=== PATIENT | female | born 1980 | race African-American/Black ===

== ENCOUNTER 2018-09-13 21:51 | Emergency (ER) | payer OTHER ==
[~2018-09-13] VITALS: Ht 167.6 cm; Wt 62.1 kg
[~2018-09-13 21:51] MED LIST: NORE-88
[2018-09-13 21:54] VITALS: BP 114/79
[2018-09-13] MEDS ORDERED: SODIUM CHLORIDE FLUSH 10ML SYR IVF ONE (22:30)
[2018-09-13 22:59] LABS: CULTURE INDICATED? YES; MICROSCOPIC AUTO
[2018-09-13 23:02] LABS: BASOPHILS # (AUTO) 0.09 x10^3/uL (0-0.1); BASOPHILS % (AUTO) 1 % (0-1); EOSINOPHILS # (AUTO) 0.34 x10^3/uL (0-0.4); EOSINOPHILS % (AUTO) 3 % (1-7); LYMPHOCYTES # (AUTO) 2.31 x10^3/uL (1-3.4); LYMPHOCYTES % (AUTO) 21 % (22-44); MD NO; MEAN CORPUSCULAR HEMOGLOBIN 30.6 pg (27.0-34.8); MEAN CORPUSCULAR HGB CONC 33.3 g/dL (32.4-35.8); MEAN CORPUSCULAR VOLUME 91.8 fL (80-100); MEAN PLATELET VOLUME 8.5 fL (7.4-10.4); MONOCYTES # (AUTO) 0.83 x10^3/uL (0.2-0.8); MONOCYTES % (AUTO) 8 % (2-9); NEUTROPHILS % (AUTO) 67 % (42-75); PLATELET COUNT 328 x10^3/uL (130-400); RED BLOOD COUNT 4.23 x10^6/uL (3.82-5.3); RED CELL DISTRIBUTION WIDTH 12.4 % (9.6-15.2)
[2018-09-13 23:10] LABS: ALBUMIN 3.7 g/dL (3.4-5.0); ANION GAP 6 mmol/L (5-15); CALCIUM 8.3 mg/dL (8.5-10.1); CHLORIDE 109 mmol/L (98-107)
[2018-09-13 23:15] LABS: ALANINE AMINOTRANSFERASE 29 U/L (12-78); ALKALINE PHOSPHATASE 59 U/L (45-117); BILIRUBIN,TOTAL 0.7 mg/dL (0.2-1.0); CREATININE 0.98 mg/dL (0.55-1.02); TOTAL PROTEIN 7.1 g/dL (6.4-8.2)
[2018-09-13] MEDS ORDERED: OMNIPAQUE 350 MG/ML, 100ML BOTTLE ONE (23:20)
== END 2018-09-14 00:54 | disposition home or self-care (01) ==
LOC: ED 23:06
DX: R10.31 Right lower quadrant pain (principal); D25.2 Subserosal leiomyoma of uterus
CPT/HCPCS: 36415; 74177; 80053; 81001; 84703; 85025; 87086; 99284; Q9967

== ENCOUNTER 2019-04-28 06:10 | Emergency (ER) | payer OTHER ==
[~2019-04-28] VITALS: Ht 162.6 cm; Wt 65.0 kg
[2019-04-28 06:12] VITALS: BP 145/68
--- NOTE | 2019-04-28 06:30 | NUR ---
biba. report received from [facility]. pt's boyfriend called 911, because pt was unresponsive. pt denies averything per [facility]. vss. pt's aox4 here. resps even and unlabored.
[2019-04-28] MEDS ORDERED: ONDANSETRON 2MG/ML, 2ML ONE (06:38)
[2019-04-28] MEDS ORDERED: KETOROLAC 30 MG/1 ML ONE (06:39)
[2019-04-28] MEDS ORDERED: ONDANSETRON 2MG/ML, 2ML IVPush ONE (07:00)
[2019-04-28] MEDS ORDERED: KETOROLAC 30 MG/1 ML IVPush ONE (07:00)
--- NOTE | 2019-04-28 07:05 | NUR ---
PT GIVEN DC INSTRUCTIONS. PT'S AOX4. RESPS EVEN AND UNLABORED. NO ACUTE DISTRESS AT DC.
== END 2019-04-28 07:04 | disposition home or self-care (01) ==
LOC: ED 06:50
DX: G43.019 Migraine without aura, intractable, without status migrainosus (principal)
CPT/HCPCS: 99283